=== PATIENT | male | born 2005 | race Caucasian/White ===

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

== ENCOUNTER 2025-01-20 02:47 | Emergency (ER) | payer BC, SELFPAY ==
--- NOTE | ~2025-01-20 | XR_ITS ---
CHEST RADIOGRAPH CLINICAL HISTORY: anxiety/ELEVATED HEART RATE . COMPARISON: None available TECHNIQUE: Single portable view of the chest. FINDINGS The cardiomediastinal silhouette is unremarkable. The lungs are clear. IMPRESSION: No focal infiltrate or effusion. Reviewed, dictated and finalized at location A.
--- OUTSIDE RECORDS SUMMARY | 2025-01-20 02:49 | XMS_ITS | Encounter Summary ---
[facility] Organization [facility] Address [address] [place] [address] Care Team Providers Care Rivet Heater Name Role Phone Sil Matt MD Primary Care Provider Encounter Details Date Type Department Care Team (Latest Contact Info) Description 11/22/2008 Outpatient Historical HIS [facility] MONIK Bates, Lc Lopez MD [address] [facility] [address] [place] [id number] Unspecified Hearing Loss Social History Tobacco Use Types Packs/Day Years Used Date Smoking Tobacco: Never Assessed Sex and Gender Information Value Date Recorded Sex Assigned at Not on file Legal Sex Male 5:44 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
--- OUTSIDE RECORDS SUMMARY | 2025-01-20 02:49 | XMS_ITS | Clinical Summary ---
Author Organization [facility] Address [address] [place] [address] Phone Care Team Providers Care Ward Attendant Name Role Phone Sil Matt MD Primary Care Provider Social History Tobacco Use Types Packs/Day Years Used Date Smoking Tobacco: Never Assessed Sex and Gender Information Value Date Recorded Sex Assigned at Not on file Legal Sex Male 5:44 AM INFORMATION ARCHITECT Gender Identity Not on file Sexual Orientation Not on file Plan of Treatment Health Maintenance Due Date Last Done Comments CHLAMYDIA SCREENING (ANNUAL) 11-24 YEARS 2016 HPV VACCINES (1 - Male 3-dose series) 2020 DTAP/TDAP/TD VACCINES (1 - Tdap) 2024 HEPATITIS B VACCINES (1 of 3 - 19+ 3-dose series) 10/25 INFLUENZA VACCINE (#1) 2025 Insurance [facility] [id number] Member Subscriber Plan / Payer (Ef fective 2021-Present) Name:James Toth Relation to Subscriber:Child Name:NAVNEETHILLARY Date of :1970 (Home) (Work) Address: [address] [place] [address] Payer ID:[id number] (NAIC) Type:PPO Address: [address] [place] [id number] [facility] [id number] Member Subscriber Plan / Payer (Ef fective 2021-Present) Name:James Toth Shweta Relation to Subscriber:Child Name:HILLARY TOTH Date of :1970 (Home) (Work) Address: [address] [place] [address] Payer ID:[id number] (NAIC) Type:PPO Address: [id number] [place] [phone] Care Teams Ward Attendant Relationship Specialty Start Date End Date Sil Matt MD PCP - General Pediatrics 05/27/10
[2025-01-20 02:51] VITALS: BP 149/72; PULSE 101; RESP 16; O2SAT 100
--- NOTE | 2025-01-20 02:56 | ECG_ITS ---
Test Date: 2025-01-20 03:02:54 Measurements Intervals [place] Rate: 90 P: 66 DC: 155 QRS: 13 QRSD: 97 T: 42 QT: 336 QTc: 412 Interpretive Statements SINUS RHYTHM No previous ECG available for comparison Electronically Signed On 01-20-2025 17:57:31 CDT by Doron Matthews M.D.
[2025-01-20] MEDS: LORazepam (*CRX) 0.5 MG TABLET PO (03:09)
--- NOTE | 2025-01-20 03:14 | ED_ITS ---
HPI - Anxiety General Chief Complaint: Anxiety Stated Complaint: panic attack Time Seen by Provider: 01/20/25 02:56 History of Present Illness HPI narrative: Patient presents with what he feels like was the panic attack, he has had similar episodes in the past but this was the worst, started while he was playing video games with his brother, he started feeling palpitations, and felt like he could not breathe, felt dizzy and like he was going to pass out, was having tingling to his hands and face, felt like he was going to . Now that he has arrived symptoms have essentially resolved. Related Data Allergies Allergy/AdvReac Type Severity Reaction Status Date / Time Penicillins Allergy Mild Hives Unverified 01/20/25 03:09 Review of Systems Review of Systems: All systems reviewed & are unremarkable except as noted in HPI and below PMFSH Social History Social History Substance use type: marijuana Exam Narrative: EXAMINATION OF ORGAN SYSTEMS/BODY AREAS: Constitutional: Vital signs per nursing GENERAL: Appears slightly anxious HEAD: Normal with no signs of head trauma. EYES: EOMI, conjunctiva normal ENT: Hearing grossly intact LUNGS: Nonlabored breathing. HEART: [Regular rate and rhythm] ABD: [Soft], [nontender to palpation] EXT: Normal range of motion, no lower extremity edema or tenderness SKIN: [No rashes or lesions.] NEURO: [Alert and oriented x 3. No gross focal sensory or strength deficits.] PSYCH: Anxious affect Course Vital Signs Vital signs: Vital Signs Pulse Rate 101 H 01/20/25 02:51 Respiratory Rate 16 01/20/25 02:51 Blood Pressure 149/72 H 01/20/25 02:51 Pulse Oximetry 100 01/20/25 02:51 Oxygen Delivery Room Air 01/20/25 02:51 Temperature 98.2 F 01/20/25 03:51 Pulse Rate 92 01/20/25 03:51 Respiratory Rate 16 01/20/25 03:51 Blood Pressure 125/65 01/20/25 03:51 Pulse Oximetry 99 01/20/25 03:51 Oxygen Delivery Room Air 01/20/25 02:51 MDM - Anxiety MDM Narrative Medical decision making narrative: Patient with history of anxiety/panic attacks presenting here with symptoms consistent with panic attack; strong family history including anxiety attacks in his mom, grandmother, brothers, paternal side also. On exam patient is [initia lly tachycardic and appears anxious]. I will obtain EKG and chest xray to rule out arrhythmia/ischemia, pneumothorax, or other cause of chest discomfort/shortness of breath. Chest x-ray on my independent interpretation does not show any acute abnormality, no pneumothorax or consolidation. EKG - 12-Lead: Performed at 0302. Interpreted by me. [Sinus rhythm]. Rate 90. [Normal] axis. AL-interval [normal]. QRS duration [normal]. QTc [normal]. [No ST segment elevation or depression]. [T-wave normal]. Impression: No EKG evidence of acute ischemia or dysrhythmia. Small dose of ativan administered. On reevaluation patient is feeling better, resting comfortably, vital signs now stable. Mom at bedside sharing strong FH of panic attack. I do feel patient is stable for discharge home at this time with followup to mental health, and return here if symptoms return or worsen. Agreeable to outpatient management. Discharge Plan Discharge Clinical Impression: Panic attack Patient Disposition: Home Condition: Stable Instructions: Panic Attack (ED) Additional Instructions: Please follow up with your doctor or with mental health services; you can always return for any further issues. Patient Language: Albanian Prescriptions: New hydroxyzine HCl 25 mg tablet 25 mg PO TID PRN (Reason: anxiety) Qty: 20 0RF No Action azithromycin [Zithromax Z-Gene] 250 mg tablet See Rx Instructions .ROUTE .COMPLEX Qty: 6 0RF Rx Instructions: For 250 mg dose pack: take 500 mg today (day 1), then 250 mg for 4 days (days 2-5) Follow-up/Referrals: Phillip Hansen MD [Primary Care Provider] -
--- OUTSIDE RECORDS SUMMARY | 2025-01-20 03:15 | XMS_ITS | Encounter Summary ---
Author Organization [facility] Address [address] [place] [address] Care Team Providers Care Acquisition Analyst Name Role Phone Sil Matt MD Primary Care Provider Encounter Details Date Type Department Care Team (Latest Contact Info) Description 11/22/2008 Outpatient Historical HIS [facility] MONIK Bates, Lc Lopez MD [address] [facility] [address] [place] [phone] Unspecified Hearing Loss Social History Tobacco Use Types Packs/Day Years Used Date Smoking Tobacco: Never Assessed Sex and Gender Information Value Date Recorded Sex Assigned at Not on file Legal Sex Male 5:44 AM LEGISLATIVE ADVOCATE Gender Identity Not on file Sexual Orientation Not on file documented as of this encounter Plan of Treatment Not on file documented as of this encounter Visit Diagnoses Diagnosis Unspecified hearing loss documented in this encounter Care Teams Acquisition Analyst Relationship Specialty Start Date End Date Sil Matt MD PCP - General Pediatrics 05/27/10 documented as of this encounter
--- OUTSIDE RECORDS SUMMARY | 2025-01-20 03:15 | XMS_ITS | Clinical Summary ---
Author Organization [facility] Address [address] [place] [address] Phone Care Team Providers Care Special Librarian Name Role Phone Sil Matt MD Primary Care Provider Social History Tobacco Use Types Packs/Day Years Used Date Smoking Tobacco: Never Assessed Sex and Gender Information Value Date Recorded Sex Assigned at Not on file Legal Sex Male 5:44 AM TRAINING LEAD Gender Identity Not on file Sexual Orientation Not on file Plan of Treatment Health Maintenance Due Date Last Done Comments CHLAMYDIA SCREENING (ANNUAL) 11-24 YEARS 2016 HPV VACCINES (1 - Male 3-dose series) 2020 DTAP/TDAP/TD VACCINES (1 - Tdap) 2024 HEPATITIS B VACCINES (1 of 3 - 19+ 3-dose series) 10/25 INFLUENZA VACCINE (#1) 2025 Insurance [facility] [id number] Member Subscriber Plan / Payer (Ef fective 2021-Present) Name:James Toth Relation to Subscriber:Child Name:NAVNEETHILLARY Date of :1970 (Home) (Work) Address: [address] [place] [address] Payer ID:[id number] (NAIC) Type:PPO Address: [address] [place] [id number] [facility] [id number] Member Subscriber Plan / Payer (Ef fective 2021-Present) Name:James Toth Shweta Relation to Subscriber:Child Name:HILLARY TOTH Date of :1970 (Home) (Work) Address: [address] [place] [address] Payer ID:[id number] (NAIC) Type:PPO Address: [address] [place] [phone] Care Teams Special Librarian Relationship Specialty Start Date End Date Sil Matt MD PCP - General Pediatrics 05/27/10
[2025-01-20 03:51] VITALS: BP 125/65; PULSE 92; RESP 16; TEMP 36.8; O2SAT 99
== END 2025-01-20 03:55 | disposition home or self-care (01) ==
PROVIDERS: Emergency Provider Emergency Medicine; PCP Pediatrics
DX: F41.0 Panic disorder [episodic paroxysmal anxiety] (principal)
CPT/HCPCS: 71045; 93005; 99283; A9270